=== PATIENT | female | born 2000 | race Caucasian/White ===

== ENCOUNTER 2025-01-15 21:09 | Emergency (ER) | payer OTHER, SELFPAY ==
[2025-01-15 21:29] VITALS: BP 156/100; PULSE 99; TEMP 37.1; O2SAT 98; BMI 39.3
[2025-01-15 22:39] VITALS: BP 149/98; PULSE 93; O2SAT 98
--- NOTE | 2025-01-15 22:43 | ED_ITS ---
HPI HPI - Back Pain/Injury General Chief Complaint: Back Pain/Injury Stated Complaint: FALL, PAIN R HIP AND THIGH Time Seen by Provider: 01/15/25 22:38 Source: patient Mode of arrival: walk-in Limitations: no limitations History of Present Illness HPI Narrative: works at [employer]. slipped and fell into the pool . Struck her left hamstring on the side of the pool while she was falling in. Now has hamstring and groin pain. No leg weakness and is able to walk no numbness of her lower ext. Denies striking her head. No abdominal or back pain Related Data Allergies Allergy/AdvReac Type Severity Reaction Status Date / Time No Known Drug Allergies Allergy Verified 01/15/25 21:29 Opioid HPI Opioid Management Most Recent Opioid Data: Last Pain Scale 8 Today, 00:20 Last ED Pain Assessment 01/15/25, 22:40 Review of Systems ROS Status of ROS 10 or more systems reviewed and unremark able except as noted in history and below PFSH PFSH Social History Little interest or pleasure in doing things: not at all Feeling down, depressed, or hopeless: not at all Exam Constitutional Vital Signs, click to edit/add: Last Vital Signs Temp 98.7 F 01/15/25 21:29 Pulse 76 01/16/25 00:19 Resp 16 01/16/25 00:19 BP 122/84 01/16/25 00:19 Pulse Ox 98 01/16/25 00:19 O2 Del Method Room Air 01/16/25 00:19 Common normals: no apparent distress, average body habitus, oriented x3, no limitations, healthy appearing, alert and well nourished [facility] Common normals: normocephalic and head/scalp atraumatic Eye Common normals: EOMs intact bilaterally and conjunctivae normal Respiratory Common normals: normal respiratory effort, no retractions, no use of accessory muscles and clear to auscultation bilaterally Cardio Common normals: regular rate, regular rhythm, S1 normal heart sound and S2 normal heart sound GI Common normals: Normal to inspection, nondistended, normoactive bowel sounds present, soft to palpation and non-tender Back & Pelvis Common normals: thoracic and lumbar spine normal to inspection and no thoracic nor lumbar tenderness Extremity Other: mild left hamstring tenderness. no ecchymosis or swelling. neg left hip pain Neuro Common normals: oriented x3, CN's II-XII intact bilaterally, moves all extremities and no focal motor deficits Psych Appearance: grossly normal Course Vital Signs Vital signs: Vital Signs Temperature 98.7 F 01/15/25 21:29 Pulse Rate 99 H 01/15/25 21:29 Respiratory Rate 20 01/15/25 21:29 Blood Pressure 156/100 H 01/15/25 21:29 Pulse Oximetry 98 01/15/25 21:29 Oxygen Delivery Method Room Air 01/15/25 21:29 Temperature 98.7 F 01/15/25 21:29 Pulse Rate 76 01/16/25 00:19 Respiratory Rate 16 01/16/25 00:19 Blood Pressure 122/84 01/16/25 00:19 Pulse Oximetry 98 01/16/25 00:19 Oxygen Delivery Method Room Air 01/16/25 00:19 MDM - Back Pain/Injury MDM Narrative Medical decision making narrative: patient fell into the pool at work. Struck her left hamstring area. xrays per my preliminary review neg for fracture. Exam with mild tenderness. no ecchymosis or swelling. Patient informed of working diagnosis of contusion and patient discharged home Discharge Plan Discharge Chief Complaint: Back Pain/Injury Clinical Impression: Contusion of left lower leg Patient Disposition: Home, Self-Care Print Language: Argentine Instructions: Contusion in Adults (ED) Additional Instructions: follow up with your doctor saturday Referrals: Physician,Non-Staff, MD [Physician] - 1 week
[2025-01-15] MEDS: ORPHENADRINE CITRATE 100 MG TABLET.ER PO (23:15)
[2025-01-16 00:19] VITALS: BP 122/84; PULSE 76; O2SAT 98
== END 2025-01-16 02:20 | disposition home or self-care (01) ==
PROVIDERS: Emergency Provider Internal Medicine; PCP Family Medicine
DX: S80.12XA Contusion of left lower leg, initial encounter (principal); W16.012A Fall into swimming pool striking water surface causing other injury, initial encounter
CPT/HCPCS: 72170; 73552; 99283